=== PATIENT | female | born 1980 | race African-American/Black ===

== ENCOUNTER → 2025-06-21 | Outpatient (CLI) | payer OTHER, MEDICAID, SELFPAY ==
--- NOTE | 2025-06-21 07:30 | XR_ITS ---
Exam: MRI knee without contrast, right Date and time of exam: June 21, 2025, 0841 hrs. Indications: Patient fell May 13, 2025 traversing injury to the knee with anterior knee pain swelling stiffness joint locking instability Technique: Multiple axial, coronal, and sagittal sections on the knee have been obtained. T2-Weighted sagittal, fat-suppressed images, TR 3,500, TE 62, T2 weighted coronal fat-saturated images, TR 3,500, TE 62 Proton density sagittal sections, TR 1800, TE 31. T-1 weighted coronal images, TR 524, TE 13.0 Findings: Medial meniscus anterior horn truncation inner margin Medial meniscus, body meniscocapsular separation. Posterior horn medial meniscus meniscocapsular separation. Lateral meniscus anterior horn is intact Lateral meniscus, body is intact Posterior horn lateral meniscus is intact Anterior cruciate ligament high-grade sprain versus complete tear Posterior cruciate ligament appears intact. Knee effusion is significant. Quadriceps and patellar tendons appear intact. There is no evidence of tendinosis. Inflammatory change or fracture of Hoffa's fat pad is not seen. Medial patellar facet demonstrates moderate thinning. Lateral patellar facet cartilage demonstrates moderate thinning. Trochlear cartilage demonstrates moderate thinning. Marrow signal increased in the proximal lateral tibial metaphyseal region. Medial collateral ligament moderate sprain Illiotibial band intact Moderate sprain fibular collateral ligament Biceps femoris tendons appear intact. Medial femoral condylar articular cartilage demonstrates moderate thinning. Lateral femoral condylar articular cartilage demonstratesmoderate thinning. Tibial plateau cartilage demonstrates moderate thinning. Impression: Meniscocapsular separation body the medial meniscus and posterior horn of the medial meniscus High-grade sprain versus complete tear anterior cruciate ligament Moderate sprain medial collateral ligament Moderate sprain iliotibial band
== END | disposition home or self-care (01) ==
PROVIDERS: PCP Physician Assistant Medical; Referring Provider Physician Assistant Medical; Visit Provider Physician Assistant Medical
DX: S83.194A Other dislocation of right knee, initial encounter (principal); S83.511A Sprain of anterior cruciate ligament of right knee, initial encounter; S83.411A Sprain of medial collateral ligament of right knee, initial encounter; S83.8X1A Sprain of other specified parts of right knee, initial encounter; W19.XXXA Unspecified fall, initial encounter
CPT/HCPCS: 73721